=== PATIENT | female | born 1995 | race Asian ===

== ENCOUNTER 2022-06-12 03:41 | Emergency (ER) | payer SELFPAY ==
[~2022-06-12] VITALS: Ht 162.6 cm; Wt 87.3 kg
[2022-06-12 03:42] VITALS: BP 141/92
== END 2022-06-12 05:59 | disposition left against medical advice (07) ==
LOC: M ED 03:41
DX: Z53.21 Procedure and treatment not carried out due to patient leaving prior to being seen by health care provider (principal)

== ENCOUNTER 2022-06-12 18:37 | Inpatient (IN) | payer OTHER, SELFPAY ==
[~2022-06-12] VITALS: Ht 162.6 cm; Wt 88.7 kg
[2022-06-13] VITALS (13 sets, daily range): BP systolic 105–138; BP diastolic 56–72
[2022-06-13] MEDS ORDERED: MORPHINE 4 MG/ML 1ML VIAL/SYRINGE IV ONE (00:15)
[2022-06-13] MEDS ORDERED: NS 1,000 ML IV ONE ×3 (00:15→03:55)
[2022-06-13 01:03] LABS: HEMATOCRIT 49.1 % (36.0-47.0); HEMOGLOBIN 17.1 g/dl (12.0-15.5); MEAN CORPUSCULAR HEMOGLOBIN 29.4 pg (27.0-33.0); MEAN CORPUSCULAR HGB CONC 34.8 g/dl (32.0-36.5); MEAN CORPUSCULAR VOLUME 84.4 fl (80.0-96.0); PLATELET COUNT, AUTOMATED 281 10^3/uL (150-450); RED BLOOD COUNT 5.82 10^6/uL (4.00-5.40); WHITE BLOOD COUNT 11.2 10^3/uL (4.0-10.0)
[2022-06-13 01:09] LABS: SQUAMOUS EPITHELIAL CELL URINE LARGE AMOUNT /hpf (SMALL AMT)
[2022-06-13 01:10] LABS: BACTERIA, URINE SMALL AMOUNT; HYALINE CAST, URINE NONE SEEN /lpf (0-1); MUCUS, URINE LARGE AMOUNT (NEGATIVE)
[2022-06-13 01:17] LABS: INR 1.05; PROTHROMBIN TIME 14.1 SECONDS (12.7-14.5)
[2022-06-13 01:18] LABS: PARTIAL THROMBOPLASTIN TIME 36.2 SECONDS (25.9-37.0)
[2022-06-13 01:23] LABS: D-DIMER QUANT 2310.04 ng/ml (<500)
[2022-06-13] MEDS ORDERED: ISOVUE-370 76% 100ML VIAL As Ordered ONE (01:43)
[2022-06-13 01:46] LABS: BASOPHILS 1 % (0-1); CK-MB VALUE MASS < 1.0 NG/ML (<3.6); CPK CREATINE PHOSPHOKINASE 210 U/L (26-192); EOSINOPHILS 1 % (0-3); LYMPHOCYTES 10 % (16-44); MB/CK RELATIVE INDEX 0.48 (< OR =4); METAMYELOCYTES 1 % (0-0); MONOCYTES 2 % (0-5); NEUTROPHILS 75 % (28-66); PLATELET ESTIMATE NORMAL (NORMAL)
[2022-06-13 01:49] LABS: ALBUMIN 3.1 GM/DL (3.2-5.2); BILIRUBIN,DIRECT < 0.1 MG/DL (0.0-0.2); FREE T4 1.03 NG/DL (0.76-1.46); LIPASE 3252 U/L (73-393); NT-PRO BNP 56 PG/ML (<125); THYROID STIMULATING HORMONE 0.227 uIU/ML (0.358-3.740)
[2022-06-13 01:49] LABS: HEMOGLOBIN A1c 6.4 %
[2022-06-13 02:19] LABS: TOTAL PROTEIN 7.4 GM/DL (6.4-8.2)
[2022-06-13 02:34] LABS: ALT/SGPT 22 IU/L (0-32)
[2022-06-13 02:55] LABS: RSV AMPLIFICATION NEGATIVE (NEGATIVE)
[2022-06-13 02:56] LABS: CK-MB VALUE MASS < 1.0 NG/ML (<3.6); CPK CREATINE PHOSPHOKINASE 222 U/L (26-192); MB/CK RELATIVE INDEX 0.45 (< OR =4)
[2022-06-13] MEDS ORDERED: MORPHINE 2 MG/ML 1ML VIAL IV ONE (03:55)
[2022-06-13] MEDS ORDERED: HOME MED LIST COMPLETE! XX SCH (04:50)
[2022-06-13] MEDS ORDERED: DEXTROSE 50% 50 ML SYRINGE IV PRN (06:05)
[2022-06-13] MEDS ORDERED: ONDANSETRON 4MG 2ML VIAL IV PRN (06:05)
[2022-06-13] MEDS ORDERED: GLUCOSE 4GM CHEW TABLET PO PRN (06:05)
[2022-06-13] MEDS ORDERED: GLUCAGON INJ 1MG VIAL SC PRN (06:05)
[2022-06-13 07:08] LABS: BASO % 0.4 % (0.0-1.0); EOS # 0.1 10^3/uL (0.0-0.5); EOS % 0.7 % (0.0-3.0); HEMATOCRIT 41.7 % (36.0-47.0); LYMPH # 0.9 10^3/uL (1.5-5.0); LYMPH % 9.8 % (24.0-44.0); MEAN CORPUSCULAR HEMOGLOBIN 29.8 pg (27.0-33.0); MEAN CORPUSCULAR HGB CONC 34.8 g/dl (32.0-36.5); MEAN CORPUSCULAR VOLUME 85.8 fl (80.0-96.0); MONO # 0.6 10^3/uL (0.0-0.8); MONO % 6.4 % (2.0-8.0); NEUTROPHILS # 7.8 10^3/uL (1.5-8.5); NEUTROPHILS % 82.2 % (36.0-66.0); PLATELET COUNT, AUTOMATED 200 10^3/uL (150-450); RED BLOOD COUNT 4.86 10^6/uL (4.00-5.40); WHITE BLOOD COUNT 9.6 10^3/uL (4.0-10.0)
[2022-06-13 07:16] LABS: HEMOGLOBIN 14.5 g/dl (12.0-15.5)
[2022-06-13] MEDS: LR 1,000 ML IV SCH ×4 (07:39→19:14)
[2022-06-13] MEDS: HYDROMORPHONE HCL 0.5 MG/ 0.5 ML SYRINGE (J1170 PER 1) IV PRN ×3 (07:40→19:14)
[2022-06-13 09:02] LABS: ALBUMIN 2.7 GM/DL (3.2-5.2); ALT/SGPT 20 U/L (12-78); BILIRUBIN,TOTAL 0.8 MG/DL (0.2-1.0); BLOOD UREA NITROGEN 14 MG/DL (7-18); CALCIUM LEVEL 6.2 MG/DL (8.5-10.1); CARBON DIOXIDE LEVEL 22 MEQ/L (21-32); CHLORIDE LEVEL 105 MEQ/L (98-107); CREATININE FOR GFR 0.85 MG/DL (0.55-1.30); GLOMERULAR FILTRATION RATE > 60.0 (>60); GLUCOSE, FASTING 181 MG/DL (70-100); POTASSIUM SERUM 3.9 MEQ/L (3.5-5.1); SODIUM LEVEL 134 MEQ/L (136-145); TOTAL PROTEIN 5.9 GM/DL (6.4-8.2); TRIGLYCERIDES LEVEL 1083 MG/DL (<150)
[2022-06-13 09:21] LABS: CHOLESTEROL LEVEL 261 MG/DL (<200); HDL CHOLESTEROL 25 MG/DL (>40); NON-HDL-C 236 MG/DL
[2022-06-13] MEDS ORDERED: INSULIN REGULAR IN 0.9 % NACL 100 UNIT in IV 1 EA IV SCH ×4 (09:35→17:00)
[2022-06-13] MEDS: INSULIN LISPRO (NovoLOG) PER UNIT SC SCH ×2 (10:48→12:27)
[2022-06-13] MEDS: ENOXAPARIN 40MG/0.4ML SYRINGE (J1650 PER 10MG) SC SCH (13:11)
[2022-06-13] MEDS: INSULIN IV RATE CHANGE DOCUMENTATION ML/HR XX SCH ×3 (14:11→22:00)
[2022-06-13] MEDS: D5W 1,000 ML IV SCH (15:25)
[2022-06-13] MEDS: MEROPENEM INJ 1 GM in IV 1 EA IV SCH (15:35)
[2022-06-13 17:08] LABS: BLOOD UREA NITROGEN 14 MG/DL (7-18); CALCIUM LEVEL 7.3 MG/DL (8.5-10.1); CARBON DIOXIDE LEVEL 24 MEQ/L (21-32); CHLORIDE LEVEL 105 MEQ/L (98-107); CREATININE FOR GFR 0.85 MG/DL (0.55-1.30); GLOMERULAR FILTRATION RATE > 60.0 (>60); GLUCOSE, FASTING 107 MG/DL (70-100); POTASSIUM SERUM 3.6 MEQ/L (3.5-5.1); SODIUM LEVEL 136 MEQ/L (136-145); TRIGLYCERIDES LEVEL 814 MG/DL (<150)
[2022-06-13] MEDS ORDERED: CHLORHEXIDINE GLUCONATE 0.12 % 15ML UDC (PERIDEX ORAL RINSE) MT SCH (21:00)
[2022-06-14] VITALS (24 sets, daily range): BP systolic 106–145; BP diastolic 55–75
[2022-06-14] MEDS: MEROPENEM INJ 1 GM in IV 1 EA IV SCH ×3 (00:03→16:12)
[2022-06-14] MEDS: INSULIN IV RATE CHANGE DOCUMENTATION ML/HR XX SCH ×3 (01:00→02:15)
[2022-06-14] MEDS: D5W 1,000 ML IV SCH ×2 (03:07→14:09)
[2022-06-14 04:36] LABS: HEMATOCRIT 35.5 % (36.0-47.0); MEAN CORPUSCULAR HEMOGLOBIN 28.5 pg (27.0-33.0); MEAN CORPUSCULAR HGB CONC 32.7 g/dl (32.0-36.5); MEAN CORPUSCULAR VOLUME 87.2 fl (80.0-96.0); PLATELET COUNT, AUTOMATED 164 10^3/uL (150-450); RED BLOOD COUNT 4.07 10^6/uL (4.00-5.40)
[2022-06-14 04:39] LABS: HEMOGLOBIN 11.6 g/dl (12.0-15.5)
[2022-06-14 05:08] LABS: ALBUMIN 2.3 GM/DL (3.2-5.2); ALT/SGPT 16 U/L (12-78); AMYLASE 128 U/L (25-115); BILIRUBIN,TOTAL 0.8 MG/DL (0.2-1.0); BLOOD UREA NITROGEN 11 MG/DL (7-18); CALCIUM LEVEL 7.6 MG/DL (8.5-10.1); CARBON DIOXIDE LEVEL 26 MEQ/L (21-32); CHLORIDE LEVEL 104 MEQ/L (98-107); CREATININE FOR GFR 0.73 MG/DL (0.55-1.30); GLOMERULAR FILTRATION RATE > 60.0 (>60); GLUCOSE, FASTING 110 MG/DL (70-100); LIPASE 842 U/L (73-393); POTASSIUM SERUM 3.6 MEQ/L (3.5-5.1); SODIUM LEVEL 135 MEQ/L (136-145); TRIGLYCERIDES LEVEL 610 MG/DL (<150)
[2022-06-14] MEDS: ENOXAPARIN 40MG/0.4ML SYRINGE (J1650 PER 10MG) SC SCH (09:00)
[2022-06-14 15:22] LABS: HEMOGLOBIN A1c 6.2 %
[2022-06-14 15:41] LABS: BLOOD UREA NITROGEN 11 MG/DL (7-18); CALCIUM LEVEL 7.9 MG/DL (8.5-10.1); CARBON DIOXIDE LEVEL 24 MEQ/L (21-32); CHLORIDE LEVEL 104 MEQ/L (98-107); CREATININE FOR GFR 0.68 MG/DL (0.55-1.30); GLOMERULAR FILTRATION RATE > 60.0 (>60); GLUCOSE, FASTING 103 MG/DL (70-100); POTASSIUM SERUM 3.7 MEQ/L (3.5-5.1); SODIUM LEVEL 134 MEQ/L (136-145); TRIGLYCERIDES LEVEL 645 MG/DL (<150)
[2022-06-15] VITALS (13 sets, daily range): BP systolic 112–145; BP diastolic 62–84
[2022-06-15] MEDS: MEROPENEM INJ 1 GM in IV 1 EA IV SCH ×2 (00:11→08:41)
[2022-06-15] MEDS: D5W 1,000 ML IV SCH ×2 (00:11→08:42)
[2022-06-15 05:10] LABS: BLOOD UREA NITROGEN 10 MG/DL (7-18); CALCIUM LEVEL 8.5 MG/DL (8.5-10.1); CARBON DIOXIDE LEVEL 24 MEQ/L (21-32); CHLORIDE LEVEL 104 MEQ/L (98-107); CREATININE FOR GFR 0.73 MG/DL (0.55-1.30); GLOMERULAR FILTRATION RATE > 60.0 (>60); GLUCOSE, FASTING 96 MG/DL (70-100); LIPASE 504 U/L (73-393); POTASSIUM SERUM 3.3 MEQ/L (3.5-5.1); SODIUM LEVEL 133 MEQ/L (136-145); TRIGLYCERIDES LEVEL 491 MG/DL (<150)
[2022-06-15] MEDS: ENOXAPARIN 40MG/0.4ML SYRINGE (J1650 PER 10MG) SC SCH (08:41)
[2022-06-15 11:11] LABS: BASO % 0.3 % (0.0-1.0); EOS # 0.2 10^3/uL (0.0-0.5); EOS % 2.6 % (0.0-3.0); HEMATOCRIT 35.7 % (36.0-47.0); HEMOGLOBIN 11.9 g/dl (12.0-15.5); LYMPH # 1.6 10^3/uL (1.5-5.0); LYMPH % 16.7 % (24.0-44.0); MEAN CORPUSCULAR HGB CONC 33.3 g/dl (32.0-36.5); MEAN CORPUSCULAR VOLUME 86.9 fl (80.0-96.0); MONO # 0.8 10^3/uL (0.0-0.8); MONO % 8.4 % (2.0-8.0); NEUTROPHILS # 6.7 10^3/uL (1.5-8.5); NEUTROPHILS % 71.5 % (36.0-66.0); PLATELET COUNT, AUTOMATED 210 10^3/uL (150-450); RED BLOOD COUNT 4.11 10^6/uL (4.00-5.40); WHITE BLOOD COUNT 9.4 10^3/uL (4.0-10.0)
[2022-06-15] MEDS ORDERED: POTASSIUM CHLORIDE 10MEQ SR TABLET PO ONE (12:00)
[2022-06-15] MEDS ORDERED: LOPI600T PO (14:32)
[2022-06-15 16:35] LABS: BLOOD UREA NITROGEN 10 MG/DL (7-18); CALCIUM LEVEL 8.8 MG/DL (8.5-10.1); CARBON DIOXIDE LEVEL 26 MEQ/L (21-32); CHLORIDE LEVEL 104 MEQ/L (98-107); CREATININE FOR GFR 0.72 MG/DL (0.55-1.30); GLOMERULAR FILTRATION RATE > 60.0 (>60); GLUCOSE, FASTING 138 MG/DL (70-100); POTASSIUM SERUM 3.8 MEQ/L (3.5-5.1); SODIUM LEVEL 134 MEQ/L (136-145)
[2022-06-15] MEDS ORDERED: ISOVUE-370 76% 100ML VIAL As Ordered ONE (16:37)
[2022-06-15] MEDS ORDERED: METR-265 PO (17:54)
[2022-06-15] MEDS ORDERED: CIPR-249 PO (17:54)
[2022-06-15] MEDS ORDERED: metroNIDAZOLE (FLAGYL) 500MG TABLET PO ONE (18:30)
[2022-06-15] MEDS ORDERED: CIPROFLOXACIN 500MG TABLET PO ONE (18:30)
== END 2022-06-15 19:45 | disposition home or self-care (01) | DRG 439 ==
LOC: M ED 18:37 → M ED INP 06-13 06:02 → ENRESERV 06-13 06:21 → M ICU 06-13 13:52 → M MSPAV 06-15 12:56
PROVIDERS: ADMIT Internal Medicine; ATTEND Internal Medicine
DX: K85.81 Other acute pancreatitis with uninfected necrosis (principal); E87.1 Hypo-osmolality and hyponatremia; J90 Pleural effusion, not elsewhere classified; E87.6 Hypokalemia; E83.51 Hypocalcemia; R73.9 Hyperglycemia, unspecified; Z91.013 Allergy to seafood; E78.1 Pure hyperglyceridemia; F17.210 Nicotine dependence, cigarettes, uncomplicated

== ENCOUNTER → 2022-09-08 | Outpatient (CLI) | payer OTHER ==
[~2022-09-08] MED LIST: CIPR-249 PO; LOPI600T PO; METR-265 PO
== END ==
LOC: M EKG 14:16
PROVIDERS: ATTEND Obstetrics & Gynecology
DX: E11.9 Type 2 diabetes mellitus without complications (principal); O24.111 Pre-existing type 2 diabetes mellitus, in pregnancy, first trimester

== ENCOUNTER → 2022-12-30 | Outpatient (CLI) | payer OTHER | LOC: M WHC 10:34 | PROVIDERS: ATTEND Obstetrics & Gynecology | DX: Z34.92 Encounter for supervision of normal pregnancy, unspecified, second trimester (principal); Z3A.23 23 weeks gestation of pregnancy ==

== ENCOUNTER 2024-04-29 23:40 | Inpatient (IN) | payer OTHER, SELFPAY ==
[~2024-04-29] VITALS: Ht 162.6 cm; Wt 96.2 kg
[~2024-04-29 23:40] MED LIST changes: +ALCOPAD25 TOP; +ATOR1TAB21 PO; +BLOOKIT21 XX; +ECOT81TA5 PO; +FAMO20TA PO; +GLUC1TES2 XX; +INSUN SC; +INSUR SC; +LABE200T5 PO; +LANC30MI XX; +LANTINJ4 SC; +LISI5TAB11 PO; +METF-838 PO; +PEN-308 SC
[2024-04-30] VITALS (12 sets, daily range): BP systolic 105–136; BP diastolic 67–81; TEMP 100.1–101.6; O2SAT 93–97
[2024-04-30] MEDS ORDERED: LOSA50TA28 PO (00:14)
[2024-04-30 01:41] LABS: AMYLASE 524 U/L (30-118); LIPASE 1012 U/L (12-53)
[2024-04-30 01:51] LABS: RED BLOOD COUNT 5.01 10^6/uL (4.00-5.40); WHITE BLOOD COUNT 10.3 10^3/uL (4.0-10.0)
[2024-04-30 01:52] LABS: HEMATOCRIT 41.3 % (36.0-47.0); MEAN CORPUSCULAR HGB CONC 33.9 g/dl (32.0-36.5); MEAN CORPUSCULAR VOLUME 82.4 fl (80.0-96.0); PLATELET COUNT, AUTOMATED 279 10^3/uL (150-450)
[2024-04-30 01:53] LABS: BASO % 0.5 % (0.0-1.0); EOS % 1.3 % (0.0-3.0); LYMPH % 15.5 % (24.0-44.0); MONO % 5.7 % (2.0-8.0); NEUTROPHILS # 7.9 10^3/uL (1.5-8.5); NEUTROPHILS % 76.4 % (36.0-66.0)
[2024-04-30 01:54] LABS: BASO # 0.1 10^3/uL (0.0-0.2); EOS # 0.1 10^3/uL (0.0-0.5); LYMPH # 1.6 10^3/uL (1.5-5.0); MONO # 0.6 10^3/uL (0.0-0.8)
[2024-04-30 01:55] LABS: MEAN CORPUSCULAR HEMOGLOBIN 27.9 pg (27.0-33.0)
[2024-04-30 02:00] LABS: ALBUMIN 4.5 G/DL (3.2-5.2); ALKALINE PHOSPHATASE 67 U/L (46-116); ALT/SGPT 53.99999 U/L (7.0-40); AST/SGOT 47.99999 U/L (<34); BILIRUBIN,DIRECT < 0.1 MG/DL (<0.4); BILIRUBIN,TOTAL 0.7 MG/DL (0.3-1.2); BLOOD UREA NITROGEN 9 MG/DL (9-23); CALCIUM LEVEL 8.7 MG/DL (8.5-10.1); CARBON DIOXIDE LEVEL 23 MMOL/L (20-31); CHLORIDE LEVEL 94 MMOL/L (98-107); CREATININE FOR GFR 0.21 MG/DL (0.55-1.30); GLOMERULAR FILTRATION RATE > 60.0 (>60); GLUCOSE, FASTING 194 MG/DL (60-100); POTASSIUM SERUM 3.7 MMOL/L (3.5-5.1); SODIUM LEVEL 125 MMOL/L (136-145); TOTAL PROTEIN 5.3 G/DL (5.7-8.2)
[2024-04-30] MEDS: NS 1,000 ML IV ONE (03:29)
[2024-04-30] MEDS: ONDANSETRON 4MG 2ML VIAL IV ONE (03:29)
[2024-04-30] MEDS: KETOROLAC 30 MG/ML 1ML VIAL IV ONE ×2 (03:30→10:00)
[2024-04-30] MEDS ORDERED: ISOVUE-370 76% 100ML VIAL As Ordered ONE (03:30)
[2024-04-30 03:33] LABS: VENOUS BASE EXCESS -3.7 (-2.0-2.0); VENOUS HCO3 20.8 MMOL/L (23.0-27.0); VENOUS O2 SATURATION 89.9 % (60.0-80.0); VENOUS PARTIAL PRESSURE O2 56.2 mmHg (30.0-50.0); VENOUS PH 7.379 UNITS (7.330-7.430); VENOUS STANDARD HCO3 21.3 MMOL/L; VENOUS TOTAL CO2 21.9 MMOL/L (24.0-28.0)
[2024-04-30 03:46] LABS: HCG, SERUM QUALITATIVE NEGATIVE (NEGATIVE)
[2024-04-30 04:12] LABS: ACETONE/KETONE 1.03 MMOL/L (0.02-0.27)
[2024-04-30 04:25] LABS: LIPASE 647 U/L (12-53)
[2024-04-30 04:41] LABS: ALKALINE PHOSPHATASE 60 U/L (46-116); ALT/SGPT 53.99999 U/L (7.0-40); AST/SGOT 47.99999 U/L (<34); BILIRUBIN,DIRECT < 0.1 MG/DL (<0.4); BILIRUBIN,TOTAL 0.6 MG/DL (0.3-1.2); BLOOD UREA NITROGEN 9 MG/DL (9-23); CALCIUM LEVEL 8.1 MG/DL (8.5-10.1); CARBON DIOXIDE LEVEL 21 MMOL/L (20-31); CHLORIDE LEVEL 95 MMOL/L (98-107); CREATININE FOR GFR 0.23 MG/DL (0.55-1.30); GLOMERULAR FILTRATION RATE > 60.0 (>60); GLUCOSE, FASTING 226 MG/DL (60-100); POTASSIUM SERUM 3.7 MMOL/L (3.5-5.1); SODIUM LEVEL 125 MMOL/L (136-145); TOTAL PROTEIN 5.3 G/DL (5.7-8.2)
[2024-04-30] MEDS: MORPHINE 4 MG/ML 1ML VIAL IV ONE (05:04)
[2024-04-30] MEDS ORDERED: GLUCOSE 4 GM CHEW PO PRN (05:25)
[2024-04-30] MEDS ORDERED: GLUCAGON INJ 1MG VIAL SC PRN (05:25)
[2024-04-30] MEDS ORDERED: DEXTROSE 50% 50ML SYRINGE IV PRN (05:25)
[2024-04-30] MEDS ORDERED: ONDANSETRON 4MG 2ML VIAL IV PRN (05:30)
[2024-04-30] MEDS: INSULIN LISPRO (NovoLOG) PER UNIT SC SCH (06:00)
[2024-04-30] MEDS: LR 1,000 ML IV ONE (06:11)
[2024-04-30] MEDS: HYDROMORPHONE HCL 0.5 MG/ 0.5 ML SYRINGE IV PRN ×2 (06:16→09:50)
[2024-04-30] MEDS ORDERED: JANU50TA22 PO (06:49)
[2024-04-30] MEDS ORDERED: LANTINJ4 SC (06:49)
[2024-04-30] MEDS ORDERED: AMMO12CR7 TOP (06:49)
[2024-04-30] MEDS ORDERED: TRET0.02 TOP (06:49)
[2024-04-30] MEDS ORDERED: ATOR1TAB21 PO (06:49)
[2024-04-30] MEDS ORDERED: HOME MED LIST COMPLETE! XX SCH (06:50)
[2024-04-30] MEDS: LR 1,000 ML IV SCH (07:22)
[2024-04-30 07:24] LABS: TRIGLYCERIDES LEVEL 6158 MG/DL (<150)
[2024-04-30] MEDS ORDERED: INSULIN IV RATE CHANGE DOCUMENTATION ML/HR XX SCH ×2 (08:30→11:00)
[2024-04-30] MEDS ORDERED: INSULIN REGULAR IN 0.9 % NACL 100 UNIT in IV 1 EA IV SCH (08:30)
[2024-04-30] MEDS: LEVEMIR (INSULIN DETEMIR) 1 UNITS/0.01ML SC ONE (09:49)
[2024-04-30] MEDS: PANTOPRAZOLE 40MG VIAL IV SCH (09:49)
[2024-04-30] MEDS: ENOXAPARIN 40MG/0.4ML SYRINGE (J1650 PER 10MG) SC SCH (09:49)
[2024-04-30] MEDS: NS 500 ML IV ONE (09:51)
[2024-04-30] MEDS: KCL 40MEQ IN D5/NS 1000ML 1,000 ML IV SCH (10:58)
[2024-04-30] MEDS: INSULIN REGULAR IN 0.9 % NACL 100 UNIT in IV 1 EA IV SCH (10:59)
[2024-04-30 11:07] LABS: BLOOD UREA NITROGEN 8 MG/DL (9-23); CALCIUM LEVEL 6.5 MG/DL (8.5-10.1); CARBON DIOXIDE LEVEL 22 MMOL/L (20-31); CHLORIDE LEVEL 98 MMOL/L (98-107); CREATININE FOR GFR 0.31 MG/DL (0.55-1.30); GLOMERULAR FILTRATION RATE > 60.0 (>60); GLUCOSE, FASTING 246 MG/DL (60-100); MAGNESIUM LEVEL 1.1 MG/DL (1.8-2.4); POTASSIUM SERUM 3.7 MMOL/L (3.5-5.1); SODIUM LEVEL 127 MMOL/L (136-145)
[2024-04-30] MEDS: PIPERACILLIN/TAZOBACTAM SOD 3.375 GM in D5W MINI-BAG PLUS 50 ML IV SCH (11:30)
[2024-04-30] MEDS ORDERED: SODIUM PHOSPHATE INJ 30 MMOL in D5W 500 ML IV ONE (11:35)
[2024-04-30] MEDS: MAG SULF 1GM/100ML (MAG RUN) 1 GM in IV 1 EA IV SCH (12:02)
[2024-04-30] MEDS: CALCIUM GLUCONATE 1,000 MG in D5W MINI-BAG PLUS 100 ML IV ONE ×2 (12:59→21:08)
[2024-04-30] MEDS: ACETAMINOPHEN TAB 650MG DOSE (2X325MG) PO PRN (13:39)
[2024-04-30] MEDS: SODIUM PHOSPHATE INJ 30 MMOL in D5W 500 ML IV ONE (14:29)
[2024-04-30 15:34] LABS: BLOOD UREA NITROGEN 8 MG/DL (9-23); CALCIUM LEVEL 6.1 MG/DL (8.5-10.1); CARBON DIOXIDE LEVEL 20 MMOL/L (20-31); CHLORIDE LEVEL 101 MMOL/L (98-107); CREATININE FOR GFR 0.38 MG/DL (0.55-1.30); GLOMERULAR FILTRATION RATE > 60.0 (>60); GLUCOSE, FASTING 278 MG/DL (60-100); MAGNESIUM LEVEL 1.6 MG/DL (1.8-2.4); PHOSPHORUS LEVEL 1.2 MG/DL (2.5-4.9); SODIUM LEVEL 128 MMOL/L (136-145); TRIGLYCERIDES LEVEL 3838 MG/DL (<150)
[2024-04-30] MEDS ORDERED: SENNA 8.6 MG TAB (SENOKOT) PO PRN (17:00)
[2024-04-30] MEDS: MAG SULF 1GM/100ML (MAG RUN) 1 GM in IV 1 EA IV ONE (17:38)
[2024-04-30 19:51] LABS: BLOOD UREA NITROGEN 7 MG/DL (9-23); CALCIUM LEVEL 5.8 MG/DL (8.5-10.1); CARBON DIOXIDE LEVEL 20 MMOL/L (20-31); CHLORIDE LEVEL 102 MMOL/L (98-107); CREATININE FOR GFR 0.41 MG/DL (0.55-1.30); GLOMERULAR FILTRATION RATE > 60.0 (>60); GLUCOSE, FASTING 253 MG/DL (60-100); MAGNESIUM LEVEL 1.9 MG/DL (1.8-2.4); PHOSPHORUS LEVEL 1.1 MG/DL (2.5-4.9); POTASSIUM SERUM 4.8 MMOL/L (3.5-5.1); SODIUM LEVEL 129 MMOL/L (136-145)
[2024-04-30] MEDS: DOCUSATE SODIUM 100MG CAPSULE PO SCH (20:28)
[2024-04-30] MEDS: LACTIC ACID 12% LOTION 225 GM BTL TOP SCH (20:28)
[2024-04-30] MEDS: KCL 20MEQ IN D5/NS 1000ML 1,000 ML IV SCH (21:08)
[2024-04-30 22:55] LABS: BLOOD UREA NITROGEN 7 MG/DL (9-23); CALCIUM LEVEL 5.9 MG/DL (8.5-10.1); CARBON DIOXIDE LEVEL 20 MMOL/L (20-31); CHLORIDE LEVEL 103 MMOL/L (98-107); GLOMERULAR FILTRATION RATE > 60.0 (>60); GLUCOSE, FASTING 248 MG/DL (60-100); MAGNESIUM LEVEL 1.8 MG/DL (1.8-2.4); PHOSPHORUS LEVEL 0.8 MG/DL (2.5-4.9); POTASSIUM SERUM 5.2 MMOL/L (3.5-5.1); SODIUM LEVEL 127 MMOL/L (136-145); TRIGLYCERIDES LEVEL 2919 MG/DL (<150)
[2024-04-30] MEDS: POTASSIUM PHOSPHATE INJ 30 MMOL in D5W 500 ML IV ONE (23:28)
[2024-05-01] VITALS (8 sets, daily range): BP systolic 120–135; BP diastolic 71–83; TEMP 99.7–101.1; O2SAT 92–97
[2024-05-01] MEDS: ACETAMINOPHEN *IV* 1,000 MG in IV 1 EA IV ONE (01:16)
[2024-05-01 02:54] LABS: BLOOD UREA NITROGEN 6 MG/DL (9-23); CALCIUM LEVEL 5.6 MG/DL (8.5-10.1); CARBON DIOXIDE LEVEL 21 MMOL/L (20-31); CHLORIDE LEVEL 104 MMOL/L (98-107); GLOMERULAR FILTRATION RATE > 60.0 (>60); GLUCOSE, FASTING 226 MG/DL (60-100); MAGNESIUM LEVEL 1.7 MG/DL (1.8-2.4); POTASSIUM SERUM 5.1 MMOL/L (3.5-5.1); SODIUM LEVEL 129 MMOL/L (136-145); TRIGLYCERIDES LEVEL 2284 MG/DL (<150)
[2024-05-01] MEDS ORDERED: SODIUM PHOSPHATE INJ 30 MMOL in D5W 500 ML IV ONE (03:25)
[2024-05-01] MEDS: D5W/LR 1,000 ML IV SCH (04:13)
[2024-05-01] MEDS: MAG SULF 1GM/100ML (MAG RUN) 1 GM in IV 1 EA IV ONE (04:22)
[2024-05-01] MEDS ORDERED: CALCIUM CHLORIDE 10% 1 GM/10 ML SYR As Ordered ONE (05:27)
[2024-05-01] MEDS: CALCIUM CHLORIDE 10% 1 GM in D5W 100 ML IV ONE (05:33)
[2024-05-01 06:22] LABS: HEMATOCRIT 40.2 % (36.0-47.0); HEMOGLOBIN 13.5 g/dl (12.0-15.5); MEAN CORPUSCULAR HEMOGLOBIN 28.2 pg (27.0-33.0); MEAN CORPUSCULAR HGB CONC 33.6 g/dl (32.0-36.5); MEAN CORPUSCULAR VOLUME 84.1 fl (80.0-96.0); PLATELET COUNT, AUTOMATED 206 10^3/uL (150-450); RED BLOOD COUNT 4.78 10^6/uL (4.00-5.40); WHITE BLOOD COUNT 7.6 10^3/uL (4.0-10.0)
[2024-05-01 06:58] LABS: ALBUMIN 2.6 G/DL (3.2-5.2); ALKALINE PHOSPHATASE 32 U/L (46-116); ALT/SGPT 16 U/L (7.0-40); AST/SGOT 33 U/L (<34); BILIRUBIN,TOTAL 0.7 MG/DL (0.3-1.2); BLOOD UREA NITROGEN 6 MG/DL (9-23); CALCIUM LEVEL 6.1 MG/DL (8.5-10.1); CARBON DIOXIDE LEVEL 19 MMOL/L (20-31); CHLORIDE LEVEL 106 MMOL/L (98-107); CREATININE FOR GFR 0.42 MG/DL (0.55-1.30); GLOMERULAR FILTRATION RATE > 60.0 (>60); GLUCOSE, FASTING 207 MG/DL (60-100); MAGNESIUM LEVEL 1.9 MG/DL (1.8-2.4); PHOSPHORUS LEVEL 1.1 MG/DL (2.5-4.9); POTASSIUM SERUM 4.4 MMOL/L (3.5-5.1); SODIUM LEVEL 133 MMOL/L (136-145); TOTAL PROTEIN 5.3 G/DL (5.7-8.2); TRIGLYCERIDES LEVEL 1963 MG/DL (<150)
[2024-05-01] MEDS: SODIUM PHOSPHATE INJ 30 MMOL in D5W 500 ML IV ONE ×2 (07:00→17:05)
[2024-05-01] MEDS ORDERED: POTASSIUM PHOSPHATE INJ 30 MMOL in D5W 500 ML IV ONE (07:00)
[2024-05-01] MEDS ORDERED: POTASSIUM CHLORIDE 10MEQ SR TABLET PO SCH (09:00)
[2024-05-01] MEDS: D10W 1,000 ML IV SCH (09:56)
[2024-05-01 11:13] LABS: ALBUMIN 2.4 G/DL (3.2-5.2); ALKALINE PHOSPHATASE 33 U/L (46-116); ALT/SGPT 13 U/L (7.0-40); AST/SGOT 15 U/L (<34); BILIRUBIN,TOTAL 0.7 MG/DL (0.3-1.2); BLOOD UREA NITROGEN < 5 MG/DL (9-23); CALCIUM LEVEL 6.8 MG/DL (8.5-10.1); CARBON DIOXIDE LEVEL 20 MMOL/L (20-31); CHLORIDE LEVEL 105 MMOL/L (98-107); CREATININE FOR GFR 0.38 MG/DL (0.55-1.30); GLOMERULAR FILTRATION RATE > 60.0 (>60); GLUCOSE, FASTING 176 MG/DL (60-100); POTASSIUM SERUM 3.8 MMOL/L (3.5-5.1); SODIUM LEVEL 133 MMOL/L (136-145); TOTAL PROTEIN 5.1 G/DL (5.7-8.2)
[2024-05-01 15:20] LABS: ALBUMIN 2.5 G/DL (3.2-5.2); ALKALINE PHOSPHATASE 33 U/L (46-116); ALT/SGPT 14 U/L (7.0-40); AST/SGOT 14 U/L (<34); BILIRUBIN,TOTAL 0.8 MG/DL (0.3-1.2); BLOOD UREA NITROGEN < 5 MG/DL (9-23); CARBON DIOXIDE LEVEL 23 MMOL/L (20-31); CHLORIDE LEVEL 104 MMOL/L (98-107); CREATININE FOR GFR 0.51 MG/DL (0.55-1.30); GLOMERULAR FILTRATION RATE > 60.0 (>60); GLUCOSE, FASTING 133 MG/DL (60-100); POTASSIUM SERUM 3.7 MMOL/L (3.5-5.1); SODIUM LEVEL 134 MMOL/L (136-145); TOTAL PROTEIN 5.4 G/DL (5.7-8.2)
[2024-05-01 19:03] LABS: ALBUMIN 2.6 G/DL (3.2-5.2); ALKALINE PHOSPHATASE 36 U/L (46-116); ALT/SGPT 15 U/L (7.0-40); AST/SGOT 15 U/L (<34); BILIRUBIN,TOTAL 0.9 MG/DL (0.3-1.2); BLOOD UREA NITROGEN < 5 MG/DL (9-23); CALCIUM LEVEL 7.1 MG/DL (8.5-10.1); CARBON DIOXIDE LEVEL 20 MMOL/L (20-31); CHLORIDE LEVEL 104 MMOL/L (98-107); CREATININE FOR GFR 0.47 MG/DL (0.55-1.30); GLOMERULAR FILTRATION RATE > 60.0 (>60); GLUCOSE, FASTING 181 MG/DL (60-100); MAGNESIUM LEVEL 1.9 MG/DL (1.8-2.4); POTASSIUM SERUM 3.5 MMOL/L (3.5-5.1); SODIUM LEVEL 131 MMOL/L (136-145); TOTAL PROTEIN 5.4 G/DL (5.7-8.2); TRIGLYCERIDES LEVEL 1302 MG/DL (<150)
[2024-05-01] MEDS: POTASSIUM CHLORIDE 10MEQ SR TABLET PO ONE (20:02)
[2024-05-01 23:27] LABS: ALBUMIN 2.6 G/DL (3.2-5.2); ALKALINE PHOSPHATASE 39 U/L (46-116); ALT/SGPT 14 U/L (7.0-40); AST/SGOT 12 U/L (<34); BILIRUBIN,TOTAL 0.8 MG/DL (0.3-1.2); BLOOD UREA NITROGEN < 5 MG/DL (9-23); CALCIUM LEVEL 7.5 MG/DL (8.5-10.1); CARBON DIOXIDE LEVEL 25 MMOL/L (20-31); CHLORIDE LEVEL 103 MMOL/L (98-107); GLOMERULAR FILTRATION RATE > 60.0 (>60); GLUCOSE, FASTING 158 MG/DL (60-100); PHOSPHORUS LEVEL 1.6 MG/DL (2.5-4.9); POTASSIUM SERUM 3.6 MMOL/L (3.5-5.1); SODIUM LEVEL 135 MMOL/L (136-145); TOTAL PROTEIN 5.8 G/DL (5.7-8.2)
[2024-05-02] MEDS: POTASSIUM PHOSPHATE INJ 20 MMOL in D5W 250 ML IV ONE (01:10)
[2024-05-02 02:20] VITALS: O2SAT 94
[2024-05-02 03:01] LABS: ALBUMIN 2.5 G/DL (3.2-5.2); ALKALINE PHOSPHATASE 36 U/L (46-116); ALT/SGPT 13 U/L (7.0-40); AST/SGOT 11 U/L (<34); BILIRUBIN,TOTAL 0.8 MG/DL (0.3-1.2); BLOOD UREA NITROGEN < 5 MG/DL (9-23); CALCIUM LEVEL 7.5 MG/DL (8.5-10.1); CARBON DIOXIDE LEVEL 21 MMOL/L (20-31); CHLORIDE LEVEL 105 MMOL/L (98-107); CREATININE FOR GFR 0.47 MG/DL (0.55-1.30); GLOMERULAR FILTRATION RATE > 60.0 (>60); GLUCOSE, FASTING 153 MG/DL (60-100); PHOSPHORUS LEVEL 1.2 MG/DL (2.5-4.9); POTASSIUM SERUM 3.7 MMOL/L (3.5-5.1); SODIUM LEVEL 133 MMOL/L (136-145); TOTAL PROTEIN 5.5 G/DL (5.7-8.2)
[2024-05-02 04:17] VITALS: BP 126/75; TEMP 98.5; O2SAT 95
[2024-05-02 07:14] LABS: ALBUMIN 2.3 G/DL (3.2-5.2); ALKALINE PHOSPHATASE 38 U/L (46-116); ALT/SGPT 10 U/L (7.0-40); AST/SGOT 10 U/L (<34); BILIRUBIN,TOTAL 0.7 MG/DL (0.3-1.2); BLOOD UREA NITROGEN < 5 MG/DL (9-23); CALCIUM LEVEL 7.7 MG/DL (8.5-10.1); CARBON DIOXIDE LEVEL 23 MMOL/L (20-31); CHLORIDE LEVEL 107 MMOL/L (98-107); CREATININE FOR GFR 0.46 MG/DL (0.55-1.30); GLOMERULAR FILTRATION RATE > 60.0 (>60); GLUCOSE, FASTING 166 MG/DL (60-100); PHOSPHORUS LEVEL 1.7 MG/DL (2.5-4.9); POTASSIUM SERUM 3.7 MMOL/L (3.5-5.1); SODIUM LEVEL 136 MMOL/L (136-145); TOTAL PROTEIN 5.4 G/DL (5.7-8.2); TRIGLYCERIDES LEVEL 1102 MG/DL (<150)
[2024-05-02 08:03] VITALS: BP 130/76; TEMP 98.5; O2SAT 94
[2024-05-02] MEDS ORDERED: GLUCAGON INJ 1MG VIAL SC PRN (09:10)
[2024-05-02] MEDS ORDERED: DEXTROSE 50% 50ML SYRINGE IV PRN (09:10)
[2024-05-02] MEDS ORDERED: GLUCOSE 4 GM CHEW PO PRN (09:10)
[2024-05-02] MEDS: POTASSIUM PHOSPHATE INJ 30 MMOL in D5W 500 ML IV ONE (10:15)
[2024-05-02] MEDS: LEVEMIR (INSULIN DETEMIR) 1 UNITS/0.01ML SC SCH (10:15)
[2024-05-02 11:01] LABS: ALBUMIN 2.5 G/DL (3.2-5.2); ALKALINE PHOSPHATASE 41 U/L (46-116); ALT/SGPT 12 U/L (7.0-40); AST/SGOT 12 U/L (<34); BILIRUBIN,TOTAL 0.8 MG/DL (0.3-1.2); BLOOD UREA NITROGEN < 5 MG/DL (9-23); CALCIUM LEVEL 7.8 MG/DL (8.5-10.1); CARBON DIOXIDE LEVEL 22 MMOL/L (20-31); CHLORIDE LEVEL 105 MMOL/L (98-107); CREATININE FOR GFR 0.45 MG/DL (0.55-1.30); GLOMERULAR FILTRATION RATE > 60.0 (>60); GLUCOSE, FASTING 199 MG/DL (60-100); PHOSPHORUS LEVEL 1.5 MG/DL (2.5-4.9); POTASSIUM SERUM 3.6 MMOL/L (3.5-5.1); SODIUM LEVEL 134 MMOL/L (136-145); TOTAL PROTEIN 5.5 G/DL (5.7-8.2)
[2024-05-02] MEDS: INSULIN LISPRO (NovoLOG) PER UNIT SC SCH ×2 (12:00→21:00)
[2024-05-02 12:14] VITALS: BP 124/78; TEMP 98.5; O2SAT 95
[2024-05-02 12:56] LABS: PROCALCITONIN 0.31 ng/ml
[2024-05-02 14:50] LABS: ALBUMIN 2.4 G/DL (3.2-5.2); ALKALINE PHOSPHATASE 41 U/L (46-116); ALT/SGPT 13 U/L (7.0-40); AST/SGOT 9 U/L (<34); BILIRUBIN,TOTAL 0.7 MG/DL (0.3-1.2); BLOOD UREA NITROGEN < 5 MG/DL (9-23); CALCIUM LEVEL 8.1 MG/DL (8.5-10.1); CARBON DIOXIDE LEVEL 23 MMOL/L (20-31); CHLORIDE LEVEL 105 MMOL/L (98-107); CREATININE FOR GFR 0.48 MG/DL (0.55-1.30); GLOMERULAR FILTRATION RATE > 60.0 (>60); GLUCOSE, FASTING 197 MG/DL (60-100); PHOSPHORUS LEVEL 2.6 MG/DL (2.5-4.9); SODIUM LEVEL 135 MMOL/L (136-145); TOTAL PROTEIN 5.7 G/DL (5.7-8.2)
[2024-05-02 16:44] VITALS: BP 129/88; TEMP 98.1; O2SAT 98
[2024-05-02 18:56] LABS: ALBUMIN 2.5 G/DL (3.2-5.2); ALKALINE PHOSPHATASE 40 U/L (46-116); ALT/SGPT 14 U/L (7.0-40); AST/SGOT 21 U/L (<34); BILIRUBIN,TOTAL 0.6 MG/DL (0.3-1.2); BLOOD UREA NITROGEN < 5 MG/DL (9-23); CALCIUM LEVEL 8.3 MG/DL (8.5-10.1); CARBON DIOXIDE LEVEL 21 MMOL/L (20-31); CHLORIDE LEVEL 104 MMOL/L (98-107); CREATININE FOR GFR 0.44 MG/DL (0.55-1.30); GLOMERULAR FILTRATION RATE > 60.0 (>60); GLUCOSE, FASTING 204 MG/DL (60-100); MAGNESIUM LEVEL 1.6 MG/DL (1.8-2.4); PHOSPHORUS LEVEL 2.8 MG/DL (2.5-4.9); POTASSIUM SERUM 4.2 MMOL/L (3.5-5.1); SODIUM LEVEL 133 MMOL/L (136-145); TOTAL PROTEIN 5.7 G/DL (5.7-8.2); TRIGLYCERIDES LEVEL 978 MG/DL (<150)
[2024-05-02 20:00] VITALS: BP 130/76; TEMP 98.3; O2SAT 96
[2024-05-02] MEDS: MAG SULF 1GM/100ML (MAG RUN) 1 GM in IV 1 EA IV ONE (20:29)
[2024-05-03] VITALS (14 sets, daily range): BP systolic 114–133; BP diastolic 67–82; TEMP 98–99.3; O2SAT 94–98
[2024-05-03 05:23] LABS: HEMATOCRIT 33.3 % (36.0-47.0); MEAN CORPUSCULAR HEMOGLOBIN 28.5 pg (27.0-33.0); MEAN CORPUSCULAR HGB CONC 33.6 g/dl (32.0-36.5); MEAN CORPUSCULAR VOLUME 84.7 fl (80.0-96.0); PLATELET COUNT, AUTOMATED 206 10^3/uL (150-450); RED BLOOD COUNT 3.93 10^6/uL (4.00-5.40)
[2024-05-03 05:25] LABS: HEMOGLOBIN 11.2 g/dl (12.0-15.5)
[2024-05-03 05:48] LABS: ALBUMIN 2.5 G/DL (3.2-5.2); ALKALINE PHOSPHATASE 45 U/L (46-116); ALT/SGPT 15 U/L (7.0-40); AST/SGOT 13 U/L (<34); BILIRUBIN,TOTAL 0.7 MG/DL (0.3-1.2); BLOOD UREA NITROGEN 6 MG/DL (9-23); CALCIUM LEVEL 8.2 MG/DL (8.5-10.1); CARBON DIOXIDE LEVEL 23 MMOL/L (20-31); CHLORIDE LEVEL 105 MMOL/L (98-107); CREATININE FOR GFR 0.49 MG/DL (0.55-1.30); GLOMERULAR FILTRATION RATE > 60.0 (>60); GLUCOSE, FASTING 177 MG/DL (60-100); POTASSIUM SERUM 3.8 MMOL/L (3.5-5.1); SODIUM LEVEL 136 MMOL/L (136-145); TOTAL PROTEIN 5.9 G/DL (5.7-8.2); TRIGLYCERIDES LEVEL 977 MG/DL (<150)
[2024-05-03] MEDS: ATORVASTATIN 20 MG TAB PO SCH (20:01)
[2024-05-03] MEDS: MAGNESIUM OXIDE 400MG TAB (MAG-OX) PO ONE (21:52)
[2024-05-04 04:18] VITALS: BP 118/62; TEMP 97.8; O2SAT 96
[2024-05-04 05:05] LABS: TRIGLYCERIDES LEVEL 708 MG/DL (<150)
[2024-05-04 07:18] LABS: BLOOD UREA NITROGEN 9 MG/DL (9-23); CALCIUM LEVEL 8.7 MG/DL (8.5-10.1); CARBON DIOXIDE LEVEL 22 MMOL/L (20-31); CHLORIDE LEVEL 103 MMOL/L (98-107); CREATININE FOR GFR 0.55 MG/DL (0.55-1.30); GLOMERULAR FILTRATION RATE > 60.0 (>60); GLUCOSE, FASTING 182 MG/DL (60-100); MAGNESIUM LEVEL 1.8 MG/DL (1.8-2.4); POTASSIUM SERUM 4.1 MMOL/L (3.5-5.1); SODIUM LEVEL 133 MMOL/L (136-145)
[2024-05-04 07:21] VITALS: BP 126/67; TEMP 98.1; O2SAT 97
[2024-05-04] MEDS ORDERED: LOPI600T PO (10:35)
[2024-05-04] MEDS ORDERED: MAGN200T10 PO (10:36)
== END 2024-05-04 11:39 | disposition home or self-care (01) | DRG 439 ==
LOC: M ED 23:40 → M PCU 04-30 05:18 → M ED INP 04-30 05:51 → M PCU 04-30 05:57 → M ICU 04-30 10:22
PROVIDERS: ADMIT Preventive Medicine Undersea and Hyperbaric Medicine; ATTEND Student in an Organized Health Care Education/Training Program
DX: K85.90 Acute pancreatitis without necrosis or infection, unspecified (principal); E87.1 Hypo-osmolality and hyponatremia; E83.42 Hypomagnesemia; E78.1 Pure hyperglyceridemia; E83.51 Hypocalcemia; E83.39 Other disorders of phosphorus metabolism; E11.9 Type 2 diabetes mellitus without complications; I10 Essential (primary) hypertension; Z91.013 Allergy to seafood; Z79.899 Other long term (current) drug therapy

== ENCOUNTER → 2025-05-10 | Outpatient (REF) | payer OTHER ==
[~2025-05-10] MED LIST changes: +AMMO12CR4 TOP; +JANU50TA22 PO; +LOSA50TA28 PO; +MAGN200T10 PO; +TRET0.046 TOP
[2025-05-10 14:15] LABS: Trichomonas vaginalis (AMP) NOT DETECTED (NEGATIVE)
[2025-05-10 14:33] LABS: TOTAL PROTEIN,RANDOM URINE 20.3 MG/DL (0.0-14.0)
[2025-05-10 14:39] LABS: GC DNA AMPLIFICATION NEGATIVE (NEGATIVE)
== END ==
LOC: M SFHCWAGY 12:25
PROVIDERS: ATTEND Obstetrics & Gynecology
DX: Z34.90 Encounter for supervision of normal pregnancy, unspecified, unspecified trimester (principal); I10 Essential (primary) hypertension

== ENCOUNTER → 2025-05-29 | Outpatient (CLI) | payer OTHER ==
[2025-05-29 15:38] LABS: PLATELET COUNT, AUTOMATED 276 10^3/uL (150-450)
[2025-05-29 15:43] LABS: LDH LACTATE DEHYDROGENASE 105 U/L (120-246)
[2025-05-29 15:44] LABS: ALT/SGPT 22 U/L (7.0-40); AST/SGOT 14 U/L (<34); CREATININE FOR GFR 0.55 MG/DL (0.55-1.30); GLOMERULAR FILTRATION RATE > 90.0 (>60)
[2025-05-29 15:52] LABS: ESTIMATED AVERAGE GLUCOSE 146.0 MG/DL (60-110)
[2025-05-29 16:12] LABS: HIV 1&2 SCREEN NEGATIVE (NEGATIVE)
[2025-05-29 16:19] LABS: HEPATITIS C VIRUS ABY INDEX < 0.02 INDEX (<0.8)
== END ==
LOC: M PLALAB 11:39
PROVIDERS: ATTEND Obstetrics & Gynecology
DX: Z34.90 Encounter for supervision of normal pregnancy, unspecified, unspecified trimester (principal); Z3A.00 Weeks of gestation of pregnancy not specified

== ENCOUNTER → 2025-06-13 | Outpatient (CLI) | payer OTHER | LOC: M PLALAB 13:43 | PROVIDERS: ATTEND Obstetrics & Gynecology | DX: Z34.01 Encounter for supervision of normal first pregnancy, first trimester (principal) ==

== ENCOUNTER → 2025-08-25 | Outpatient (CLI) | payer OTHER | LOC: M RAD 07:10 | PROVIDERS: ATTEND Obstetrics & Gynecology | DX: O24.312 Unspecified pre-existing diabetes mellitus in pregnancy, second trimester (principal); Z3A.21 21 weeks gestation of pregnancy ==

== ENCOUNTER → 2025-09-18 | Outpatient (CLI) | payer OTHER ==
[2025-09-18 16:30] LABS: PLATELET COUNT, AUTOMATED 271 10^3/uL (150-450)
[2025-09-18 16:42] LABS: GLUCOSE CHALLENGE TEST 1 HOUR 236 MG/DL (LESS THAN 140)
[2025-09-18 17:18] LABS: HIV 1&2 SCREEN NEGATIVE (NEGATIVE)
[2025-09-18 17:26] LABS: HEPATITIS C VIRUS ABY INDEX < 0.02 INDEX (<0.8)
[2025-09-18 17:32] LABS: Trichomonas vaginalis (AMP) NOT DETECTED (NEGATIVE)
[2025-09-18 17:55] LABS: GC DNA AMPLIFICATION NEGATIVE (NEGATIVE)
== END ==
LOC: M PLALAB 13:22
PROVIDERS: ATTEND Specialist
DX: Z34.80 Encounter for supervision of other normal pregnancy, unspecified trimester (principal)

== ENCOUNTER → 2025-10-17 | Outpatient (REF) | payer OTHER ==
[~2025-10-17] MED LIST changes: -LABE200T5 PO; +LABE200T86 PO
== END ==
LOC: M PLALAB 11:57
PROVIDERS: ATTEND Obstetrics & Gynecology
DX: Z53.9 Procedure and treatment not carried out, unspecified reason (principal)

== ENCOUNTER → 2025-10-18 | Outpatient (CLI) | payer OTHER ==
[2025-10-18 16:00] LABS: ESTIMATED AVERAGE GLUCOSE 143.0 MG/DL (60-110)
== END ==
LOC: M PLALAB 12:17
PROVIDERS: ATTEND Obstetrics & Gynecology
DX: O24.119 Pre-existing type 2 diabetes mellitus, in pregnancy, unspecified trimester (principal)